=== PATIENT | female | born 1990 ===

== ENCOUNTER 2018-07-26 12:26 | Emergency (ER) | payer OTHER ==
[2018-07-26 12:34] VITALS: BP 132/82; PULSE 99; RESP 18; TEMP 98.2; O2SAT 99; BMI 27.3
[2018-07-26] MEDS ORDERED: Amoxicillin-Clav 875-125 mg Tab PO STA (13:36)
[2018-07-26] MEDS ORDERED: Amoxicillin-Clav 875-125 mg Tab PO ONE (13:50)
--- NOTE | 2018-07-26 14:31 | RAD ---
Date of service: 07/26/2018 HISTORY: cough COMPARISON: Is the what TECHNIQUE: Chest PA and lateral FINDINGS: LUNGS: No active pulmonary disease. PLEURA: No significant pleural effusion identified. No pneumothorax apparent. CARDIOVASCULAR: No aortic atherosclerotic calcification present. Normal cardiac size. No pulmonary vascular congestion. OSSEOUS STRUCTURES: No significant abnormalities. VISUALIZED UPPER ABDOMEN: Normal. OTHER FINDINGS: None. IMPRESSION: No active disease.
--- NOTE | 2018-07-27 02:34 | C.PDOC ---
History Of Present Illness 28 y/o female with no significant PMH presents to the ED c/o bilateral ear pain x 3 days. States pain is worse in the left ear. Associated subjective fever and productive cough. Denies abdominal pain, nausea, vomiting, diarrhea, rash, hearing loss, tinnitus, vertigo, urinary symptoms, headache, dizziness, vision changes, ear drainage, sore throat, eye pain or redness, or any other associated symptoms. Time Seen by Provider: 07/26/18 12:32 Chief Complaint (Nursing): ENT Problem Past Medical History Vital Signs: Last Vital Signs Temp 98.2 F 07/26/18 12:29 Pulse 99 H 07/26/18 12:29 Resp 18 07/26/18 12:29 BP 132/82 07/26/18 12:29 Pulse Ox 99 07/26/18 12:29 - [place] [facility] MONITORING NOS (10/16/13) MANUAL ASSIST DELIV NEC (10/16/13) Family History: States: Unknown Family Hx - Social History Hx Alcohol Use: No Hx Substance Use: No - Immunization History Hx Tetanus Toxoid Vaccination: Yes Hx Influenza Vaccination: No Hx Pneumococcal Vaccination: Yes Review Of Systems Constitutional: Positive for: Fever Eyes: Negative for: Vision Change ENT: Positive for: Ear Pain. Negative for: Ear Discharge, Nose Pain, Nose Congestion, Mouth Pain, Throat Pain Cardiovascular: Negative for: Chest Pain, Palpitations Respiratory: Positive for: Cough, Sputum. Negative for: Shortness of Breath Gastrointestinal: Negative for: Nausea, Vomiting, Abdominal Pain Musculoskeletal: Negative for: Neck Pain, Back Pain Skin: Negative for: Rash Neurological: Negative for: Weakness, Numbness, Headache, Dizziness Physical Exam - Physical Exam Appears: Well, Non-toxic, No Acute Distress Skin: Normal Color, Warm, Dry Head: Atraumatic, Normacephalic Eye(s): bilateral: Normal Inspection, PERRL, EOMI Ear(s): Left: TM Erythema (and bulging), Right: Normal, Bilateral: Other (no drainage; canals normal b/l; no mastoid bogginess or tenderness b/l) Nose: Normal Oral Mucosa: Moist Throat: Normal, No Erythema, No Exudate Neck: Normal, Normal ROM, Supple, Other (meningeal signs) Cardiovascular: Rhythm Regular Respiratory: Normal Breath Sounds Gastrointestinal/Abdominal: Soft, No Tenderness Extremity: Normal ROM, Capillary Refill (<2s) Extremity: Bilateral: Atraumatic, Normal Color And Temperature, Normal ROM Pulses: Left Radial: Normal, Right Radial: Normal Neurological/Psych: Oriented x3, Normal Speech, Normal Motor, Normal Sensation Gait: Steady ED Course And Treatment O2 Sat by Pulse Oximetry: 99 Medical Decision Making Medical Decision Making: Initial Plan: * CXR CXR negative for active disease Will treat otitis media with augmentin prescription, first dose here. Advised followup with ENT and PMD within 2 days. Diagnostic testing results and plan of care discussed with patient. Strict instructions given regarding prescription use, importance of followup, and signs/symptoms to return to ER including hearing loss, dizziness, headache, or any other new/worsening symptoms. Pt verbalized understanding of discussion. Patient is A&Ox3, ambulating with steady gait, with vital signs stable for discharge. Disposition - Disposition Referrals: [facility] at [facility] [Outside] Andrzej Shaw MD [Staff Provider] - Disposition: HOME/ ROUTINE Disposition Time: 13:50 Condition: GOOD Additional Instructions: Aumentar cada 12 horas eladoi 7 canales. Aumentar los fluidos [place], no actividad vigorosa. Seguimiento con ENT dentro de 2 canales. Seguimiento con primaria / clnica dentro de 2 canales. Regrese a la douglas de emergencias con cualquier sntoma nuevo o que empeore Prescriptions: Amoxicillin/Clavulanate [Augmentin 875 MG-125 MG] 1 tab PO Q12H #14 tab Instructions: Ear Infections (Otitis Media) (DC) Forms: Gen Discharge Inst [place], [place] [facility] ([place]), Work Excuse Print Language: MARTINIQUAIS - Clinical Impression Clinical Impression: Otitis media
== END 2018-07-26 13:54 | disposition home or self-care (01) ==
LOC: C.ER 12:26
DX: H66.92 Otitis media, unspecified, left ear (principal)